=== PATIENT | female | born 1960 | race Caucasian/White ===

== ENCOUNTER → 2022-09-24 10:03 | Outpatient (CLI) | payer OTHER, SELFPAY ==
--- NOTE | 2022-09-24 | DI.MG.S_ITS ---
BILATERAL DIGITAL DIAGNOSTIC MAMMOGRAM 3D/2D: 09/24/2022 CLINICAL: Left breast lump. Baseline exam. No prior exams were available for comparison. There are scattered areas of fibroglandular density in both breasts (category b / 25%-50% glandular tissue). No correlate to the patient's diffuse medial left breast pain. There is an incidental possible oval equal density asymmetry with an obscured and indistinct margin in the left breast at 1 o'clock middle depth. This is not seen in additional views. No other significant masses, calcifications, or other findings are seen in either breast. IMPRESSION: INCOMPLETE: NEEDS ADDITIONAL IMAGING EVALUATION There is no abnormality seen in the left breast to correspond with the diffuse pain in the inner aspect. The incidental asymmetry in the left breast is indeterminate. An ultrasound is recommended. This was performed immediately following this exam. Based on the Tyrer Cuzick model (a risk assessment model) the patient's lifetime risk is 5.0% and her 10 year risk is 2.1%. According to the ACR, ACS, and NCCN guidelines, an annual breast MRI exam along with mammogram is recommended if the patient's lifetime risk is 20% or greater. This exam was interpreted at Station ID: [id number]. NOTE: For mammograms, a report in lay terms will be sent to the patient. Approximately 15% of breast malignancies will not be visualized mammographically. In the management of a palpable breast mass, a negative mammogram must not discourage biopsy of a clinically suspicious lesion. Electronically Signed By: Deneen joya/:09/24/2022 12:58:47 ACR BI-RADS Category 0: Incomplete 3340F
--- NOTE | 2022-09-24 | DI.US.S_ITS ---
LIMITED ULTRASOUND OF LEFT BREAST: 09/24/2022 CLINICAL: Diffuse left breast pain. Comparison is made to exam dated: 09/24/2022 mammogram - [facility]. Color flow ultrasound of the left breast 1 o'clock region was performed. Cross scale images of the real-time examination were reviewed. There is a 0.6 cm x 0.6 cm x 0.5 cm anechoic oval cyst with a finely septated internal wall in the left breast at 12 o'clock anterior depth 4 cm from the nipple. This correlates with mammography findings. Color flow imaging demonstrates that there is no vascularity present. Dense glandular tissue present in the medial left breast area of concern. IMPRESSION: BENIGN There is no sonographic finding to explain medial left breast pain. The 0.6 cm incidental oval cyst in the left breast is benign. Return to annual mammogram screening schedule is recommended. Findings and recommendations were conveyed to the patient at time of exam. This exam was interpreted at Station ID: [id number]. Electronically Signed By: Deneen joya/:09/24/2022 13:02:26 letter sent: Normal Exam Ultrasound BI-RADS: 2 Benign
== END ==
PROVIDERS: Referring Provider Student in an Organized Health Care Education/Training Program; Visit Provider Student in an Organized Health Care Education/Training Program
DX: N60.02 Solitary cyst of left breast (principal); R92.8 Other abnormal and inconclusive findings on diagnostic imaging of breast
CPT/HCPCS: 76642; 77066; G0279

== ENCOUNTER 2022-11-10 11:31 | Day surgery (SDC) | payer OTHER, SELFPAY ==
[2022-11-10] VITALS (13 sets, daily range): BP systolic 94–152; BP diastolic 66–91; PULSE 64–134; RESP 10–23; TEMP 36.1–36.7; O2SAT 95–100; BMI 46.2
[2022-11-10] MEDS: LACTATED RINGERS 1,000 ML 200 ML IV ×2 (11:57→15:25)
--- NOTE | 2022-11-10 13:08 | PM.HP.1 ---
History of Present Illness History of Present Illness Date Patient Seen: 11/10/22 Time Patient Seen: 13:08 Chief complaint: Colonoscopy Narrative: The patient presents for colorectal screening. They have never had any previous examination for such. No personal or family history of colon cancer. On further history denies any recent gastrointestinal symptoms. No nausea, vomiting, abdominal pain, loss of appetite, unexplained weight loss, change in bowel habits, or blood per rectum. Patient History Family & Social History Social History: household members spouse Tobacco & Substance use: Smoking Status Never smoker alcohol intake never Substance Use Type does not use Meds Home Medications and Allergies Home Medications Medication Instructions Recorded Confirmed Type ibuprofen 200 mg tablet 200 mg PO Q6H PRN pain 06/08/21 11/10/22 History Allergies Allergy/AdvReac Type Severity Reaction Status Date / Time tetracycline Allergy Unknown Verified 06/08/21 10:36 Exam Vital Signs (past 8 hours): - 11/10/22 11:45 Temperature 97.3 F L Pulse Rate 72 Respiratory Rate 16 Blood Pressure 144/82 H Pulse Oximetry 98 Oxygen Delivery Method Room Air Oxygen Delivery Method Room Air Narrative Exam Narrative: General adult woman alert oriented no acute distress Assessment & Plan Assessment & Plan narrative: The patient requires colorectal screening and colonoscopy is recommended. Technical details were discussed. Risks, benefits, alternatives explained. Risks including but not limited to myocardial infarction, aspiration, bleeding, pain, missed lesion, incomplete examination, need for further radiographic studies, colonic perforation, and need for major abdominal surgery were discussed. All questions were answered to their satisfaction, and they are in agreement with this plan. Time Spent With Patient Critical Care time: I spent a total of [] minutes of critical care time on this patient's care today; this time is exclusive of procedural time.
--- NOTE | 2022-11-10 13:09 | P.OP.COLON_ITS ---
Operative Date/Time/Diagnoses Date of procedure: 11/10/22 Time of procedure: 13:09 Pre-op diagnosis: Colorectal screening Post-op diagnosis: other (Colon polyp x1) Procedure & Clinicians Study performed: Colonoscopy Same procedure as scheduled: Yes Indications: Colorectal screening Surgeon: Kevin Pickett Procedure Notes Procedure in detail: The history and physical was performed/updated and the patient is ASA class is 2. The procedure was discussed in detail with the patient. Potential risks complications including infection, bleeding, missed diagnosis, perforation, need for surgery, and were explained. Their questions were answered and informed consent was obtained. Patient was brought to the procedure room and placed standard monitoring equipment. The patient's vital signs were monitored continuously throughout the entire procedure. Prior to starting time-out was performed. The patient was placed in the left lateral recumbent position. Procedural sedation was administered by anesthesia. Examination began with a thorough inspection of the perianal area there was no evidence of fissures, fistulae, external hemorrhoids or cutaneous malignancy. The colonoscopy scope was then placed into the anal canal and was advanced to the cecum, which was identified by the ileocecal valve, the appendiceal orifice and the confluence of the taenia. The scope was then slowly withdrawn examining colon thoroughly in all directions, irrigating it of any residual stool. Within the rectum there was a 5 mm polyp removed with biopsy forceps. Colon was tortuous and external pressure and a stiffening of the scope was neces marlena to complete it. The patient tolerated the procedure well. They will be discharged once criteria are met. The prep was of good/excellent quality. The withdrawl time was 7 minutes. Specimen(s): other (Rectal polyp) Impression: Colonic polyp x1 Post-procedure Recommendations: High fiber diet Plan for aftercare: Follow-up is dependent on pathology findings Disposition: same day surgery
--- NOTE | 2022-11-10 13:49 | SUR.PHASEI ---
EKG ordered and is being performed.
--- NOTE | 2022-11-10 13:55 | SUR.PHASEI ---
Dr. Pavon at bedside to evaluate patient. Metoprolol given by Dr. Perez.
--- NOTE | 2022-11-10 14:02 | SUR.PHASEI ---
Patient reported chest pressure butt denied chest pain.
--- NOTE | 2022-11-10 14:09 | P.EN_ITS ---
Event Note Date Patient Seen: 11/10/22 Time Patient Seen: 14:00 Event Note (Rapid Response, Code, or fall): 62 F with no known PMH, obese with BMI 46, here for a colonoscopy for colorectal cancer screening. Surgeon called when patient developed afib with RVR, rates as fast as 130 on shelter monitor. Was given 1L IV fluids, IV metorpolol with anesthesiologist. Improved generally to the 110s. She complains of chest pressure currently, EKG with mild ST depressions, lab evaluation ordered including cardiac biomarkers. Ordered 25 mg metoprolol tartrate oral. Suspect underlying afib based on history of palpitations in the past. Full consult or H&P to follow depending on disposition from PACU.
[2022-11-10 14:20] LABS: Add Manual Diff / Slide Review NO; Basophils Absolute Auto 100 /uL (0-100); Basophils Percent Auto 1.3 % (0-2); Eosinophils Absolute Auto 100 /uL (0-450); Eosinophils Percent Auto 2.5 % (2-4); Hematocrit 41.8 % (36-46); Hemoglobin 13.9 g/dL (12.0-16.0); Lymphocytes Absolute Auto 2500 /uL (1100-4500); Lymphocytes Percent Auto 44.3 % (25-40); Mean Corpuscular HGB Conc 33.4 % (30-36); Monocytes Absolute Auto 500 /uL (0-900); Monocytes Percent Auto 8.6 % (3-14); Neutrophils Absolute Auto 2400 /uL (1500-7000); Neutrophils Percent Auto 43.3 % (50-75); Platelet Count 238 X10^3/uL (150-400); Red Blood Cell Count 4.64 X10^6/uL (4.0-5.2); Red Cell Distribution Width 13.6 % (11.6-14.8); White Blood Cell Count 5.6 X10^3/uL (4.5-11.0)
--- NOTE | 2022-11-10 14:48 | SUR.PHASEI ---
Cardiac rhythm converted spontaneously to NSR.
[2022-11-10 14:52] LABS: Alanine Aminotransferase 25 IU/L (<35); Albumin 4.3 g/dL (3.5-5.0); Albumin Globulin Ratio 1.3 (1.0-2.8); Alkaline Phosphatase 117 U/L (38-126); Aspartate Aminotransferase 39 IU/L (14-36); BUN Creatinine Ratio 17.2 (6-22); Bilirubin Total 0.9 mg/dL (0.2-1.3); Blood Urea Nitrogen 10 mg/dL (7-17); Carbon Dioxide 27 mmol/L (22-32); Chloride 105 mmol/L (98-107); Estimated Glomerular Filt Rate > 60 mL/min (>60); Globulin 3.2 g/dL (1.7-4.1); Glucose 97 mg/dL (80-110); HEMOLYSIS < 15 (0-50); Magnesium 2.2 mg/dL (1.6-2.3); Potassium 3.6 mmol/L (3.4-5.1); Sodium 140 mmol/L (137-145); Total Protein 7.5 g/dL (6.3-8.2)
[2022-11-10 14:53] LABS: Carbon Dioxide 28 mmol/L (22-32); Chloride 106 mmol/L (98-107); HEMOLYSIS < 15 (0-50); Magnesium 2.2 mg/dL (1.6-2.3); Potassium 3.6 mmol/L (3.4-5.1); Sodium 140 mmol/L (137-145)
[2022-11-10 15:01] LABS: NT-proBNP (BNP-Adult 18+) 15 pg/mL (<125)
[2022-11-10 15:04] LABS: Troponin I < 0.012 ng/mL (0.01-0.034)
--- NOTE | 2022-11-10 15:22 | SUR.PHASEI ---
Dr. Pavon evaluated patient and patient may discharge per MD.
--- NOTE | 2022-11-10 15:23 | PM.CN ---
History of Present Illness Consult details Date Patient Seen: 11/10/22 Time Patient Seen: 14:00 Chief complaint: Colonoscopy Reason for consult: afib with RVR Requesting provider: Kevin Pickett Narrative: This is a 62 year old female with no known PMH here today for a screening colonoscopy. After her procedure, patient was found to be in afib with RVR. She had mild chest pressure during this episode, there was no radiation of the pressure and she denied diaphoresis or shortness of breath. She denied nausea or vomiting. She denies any recent dyspnea on exertion, lower extremity edema or orthopnea. She has occasional palpitations that usually resolve on their own. She has never been diagnosed with atrial fibrillation before. EKG showed afib with RVR, with ST depression in V2-V6. Patient was given a little over 1L fluid, 2 mg IV metoprolol and 25 mg of metoprolol tartate. She converted to sinus rhythm. Laboratory evaluation was unremarkable including negative troponin. Repeat EKG showed resolution of ST depressions and patient's symptoms had resolved. Meds Home Medications and Allergies Home Medications Medication Instructions Recorded Confirmed Type ibuprofen 200 mg tablet 200 mg PO Q6H PRN pain 06/08/21 11/10/22 History aspirin 81 mg tablet,delayed 81 mg PO DAILY 30 days #30 tabs 11/10/22 Rx release metoprolol succinate 25 mg 25 mg PO DAILY 30 days #30 tabs 11/10/22 Rx tablet,extended release 24 hr Allergies Allergy/AdvReac Type Severity Reaction Status Date / Time tetracycline Allergy Unknown Verified 06/08/21 10:36 Review of Systems Review of Systems Narrative: All other systems reviewed with the patient and are negative unless otherwise stated. Exam Vital Signs (past 8 hours): - 11/10/22 11:45 11/10/22 13:42 11/10/22 13:47 Temperature 97.3 F L 96.9 F L Pulse Rate 72 134 H 132 H Respiratory Rate 16 14 12 Blood Pressure 144/82 H 117/71 132/80 Pulse Oximetry 98 98 98 Oxygen Delivery Method Room Air Room Air Room Air 11/10/22 13:52 11/10/22 13:58 11/10/22 14:02 Temperature Pulse Rate 126 H 115 H 120 H Respiratory Rate 11 L 17 11 L Blood Pressure 152/91 H 130/81 123/83 Pulse Oximetry 98 98 97 Oxygen Delivery Method Room Air Room Air Room Air 11/10/22 14:19 11/10/22 14:27 11/10/22 14:38 Temperature Pulse Rate 100 H 111 H 119 H Respiratory Rate 12 10 L 13 Blood Pressure 142/78 H 116/89 108/79 Pulse Oximetry 98 98 97 Oxygen Delivery Method Room Air Room Air Room Air 11/10/22 14:47 11/10/22 14:57 11/10/22 15:12 Temperature 98.1 F Pulse Rate 68 65 84 Respiratory Rate 19 14 23 Blood Pressure 94/66 133/72 132/73 Pulse Oximetry 100 97 97 Oxygen Delivery Method Room Air Room Air Room Air Oxygen Delivery Method Room Air Narrative Exam Narrative: General:? Patient is well developed and well nourished, in no distress at this time. HEENT:? Normocephalic, atraumatic, extraocular muscles intact, oral pharynx is clear and mucous membranes are moist. Neck: supple and symmetric, trachea is midline, no cervical adenopathy. Negative for JVD Chest:? Normal AP diameter and contour without kyphoscoliosis, no tachypnea, equal chest rise bilaterally. Lungs:? CTA b/l no wheezing rhonchi or rales. Cardio:?RRR no m/r/g. Abdomen: S NT ND. No CVA tenderness. Musculoskeletal:? Muscle strength and tone are equal within normal limits, no deformity. Extremities: No edema or joint effusions. No cyanosis or clubbing. Skin:? Pale,? Warm to touch,dry and intact without rashes, ulcerations or petechiae.? Neuro:? Alert and orientated x3,? sensation to touch intact in all extremities, no gross deficits noted of cranial nerves. Psych:? Patient has a well-kept appearance, appropriate affect, mental status attitude thought context and judgment are appropriate for age. Objective ECG Impression: Initial: Afib with RVR, rate [address] depressions V2-6. Follow up: NSR, rate 60s, no ST abnormalitites. Labs 11/10/22 14:00 11/10/22 14:33 Labs: Laboratory Results - last 24 hr 11/10/22 11/10/22 11/10/22 14:00 14:33 14:33 WBC 5.6 RBC 4.64 Hgb 13.9 Hct 41.8 MCV 90.0 MCH 30.0 MCHC 33.4 RDW 13.6 Plt Count 238 Neut % (Auto) 43.3 L Lymph % (Auto) 44.3 H [place] % (Auto) 8.6 Eos % (Auto) 2.5 Baso % (Auto) 1.3 Neut # (Auto) 2400 Lymph # (Auto) 2500 [place] # (Auto) 500 Eos # (Auto) 100 Baso # (Auto) 100 Sodium 140 140 Potassium 3.6 3.6 Chloride 106 105 Carbon Dioxide 28 27 BUN 10 Creatinine 0.58 Estimated GFR > 60 BUN/Creatinine Ratio 17.2 Glucose 97 Calcium 9.0 Magnesium 2.2 2.2 Total Bilirubin 0.9 AST 39 H ALT 25 Alkaline Phosphatase 117 Troponin I < 0.012 NT-Pro-B Natriuret Pep Total Protein 7.5 Albumin 4.3 Globulin 3.2 Albumin/Globulin Ratio 1.3 11/10/22 14:33 WBC RBC Hgb Hct MCV MCH MCHC RDW Plt Count Neut % (Auto) Lymph % (Auto) [place] % (Auto) Eos % (Auto) Baso % (Auto) Neut # (Auto) Lymph # (Auto) [place] # (Auto) Eos # (Auto) Baso # (Auto) Sodium Potassium Chloride Carbon Dioxide BUN Creatinine Estimated GFR BUN/Creatinine Ratio Glucose Calcium Magnesium Total Bilirubin AST ALT Alkaline Phosphatase Troponin I NT-Pro-B Natriuret Pep 15 Total Protein Albumin Globulin Albumin/Globulin Ratio [facility] Medical History HLD (hyperlipidemia) Prediabetes Surgical History History of cholecystectomy Family History Father CAD (coronary artery disease) Mother Diabetes mellitus Other No pertinent past medical history Social History household members: spouse Tobacco & Substance Use Smoking Status: Former smoker alcohol intake: never Assessment & Plan Assessment & Plan narrative: 1. Paroxysmal Atrial fibrillation with RVR, resolved - new diagnosis for patient, likely in the setting of volume depletion from colonoscopy prep, possible MJ as well. Patient converted to NSR with IV fluids and 25 mg oral metoprolol tartrate. Chest symptoms resolved. Labs are unremarkable including negative troponin. - recommend outpatient nuclear stress testing given EKG findings with RVR that resolved with conversion to NSR, 81 mg daily aspirin, and metoprolol succinate 25 mg daily given prior history of palpitations. - CHADS-VASC of 1 based on available data. - if stress testing is unremarkable would also evaluate with outpatient sleep study. - recommend PCP follow up ideally within the week. Discussed care with patient, PACU nurse, and attending surgeon. Reviewed patient's outpatient PCP records that are scanned into the chart for additional history. Patient okay for discharge home at this time with close outpatient follow up for above recommendations. I have utilized all available immediate resources to obtain, update, or review the patient's current medications. Time Spent With Patient Critical Care time: I spent a total of [] minutes of critical care time on this patient's care today; this time is exclusive of procedural time.
== END 2022-11-10 15:40 | disposition home or self-care (01) ==
PROVIDERS: Anesthesiology; Internal Medicine; Referring Provider Surgery; Visit Provider Surgery
PROC: 0DJD8ZZ Inspection of Lower Intestinal Tract, Via Natural or Artificial Opening Endoscopic (ICD-10-PCS; CPT 45378; principal; 2022-11-10 12:30)
DX: Z12.11 Encounter for screening for malignant neoplasm of colon (principal); I48.91 Unspecified atrial fibrillation; K62.1 Rectal polyp
CPT/HCPCS: 45380; 80051; 80053; 83735; 83880; 84484; 85025; 93005

== ENCOUNTER → 2023-05-14 13:34 | Outpatient (CLI) | payer OTHER, SELFPAY ==
--- NOTE | 2023-05-14 | DI.ECHO.S_ITS ---
[facility]---------[facility] +---------+ : : [address] : : : : [id number] : : : : Phone: [phone]+ Echocardiogram Report + + :Name: CAITIE THOMAS Study Date: 05/14/2023 Height: 62 in : [facility] ReadingLocation: Weight: 260 lb : : Gender: Female BSA: 2.1 m2 : :: 1960 Age: 62 yrs BP: 164/96 mmHg: :Reason For Study: Paroxysmal Atrial Fibrillation : :Ordering Physician: USAMA, : :PAUL Performed By: María Elena Killian : :Referring: PAUL MOORE : + + Interpretation Summary 1) Normal left ventricular thickness, size, and systolic function (EF 60-65%). 2) Normal right ventricular size and function. 3) No significant valvular abnormalities. 4) No prior Echo available for comparison. Procedure: A two-dimensional transthoracic echocardiogram with color flow and Doppler was performed. The study quality was technically difficult. There is no prior echocardiogram noted for this patient. The patient was in normal sinus rhythm during the exam. Left Ventricle: The left ventricle is normal in size and wall thickness. The ejection fraction is estimated to be 60-65%. There are no obvious focal wall motion abnormalities noted but poor endocardial definition reduces the sensitivity for the detection of such. Diastolic parameters suggest a relaxation abnormality of the left ventricle, consistent with probable normal filling pressures. Right Ventricle: The right ventricle is normal in size and function. Atria: The left atrial size is normal. Right atrial size is normal. There is no Doppler evidence for an interatrial shunt. Mitral Valve: The mitral valve is normal. There is no mitral valve stenosis. There is trace mitral regurgitation. Aortic Valve: The aortic valve is trileaflet. There is mild aortic valve sclerosis. There is no aortic valve stenosis. No aortic regurgitation is present. Tricuspid Valve: The tricuspid valve is normal. There is no tricuspid stenosis. There is trace tricuspid regurgitation. Pulmonary artery pressures cannot be estimated because of the lack of a measurable TR jet velocity. Pulmonic Valve: The pulmonic valve is not well visualized. There is no pulmonic valvular stenosis. There is no pulmonic valvular regurgitation. Great Vessels: The aortic root is normal size. The ascending aorta is at the upper limits of normal in size. The pulmonary artery is normal size. The inferior vena cava was not well visualized. Pericardium/ Pleura There is a trivial pericardial effusion noted. MMode/2D Measurements & Calculations LVIDd: 5.1 cm LVOT diam: 2.0 cm LVIDs: 4.1 cm Ao root diam: 2.6 cm FS: 19.6 % asc Aorta Diam: 3.5 cm IVSd: 1.0 cm LVPWd: 0.90 cm LV menjivar. diameter/BSA (cm/m^2): 2.4 LV sys. diameter/BSA (cm/m^2): 1.9 LA A2 area: 12.4 cm2 RA long axis: 4.3 cm LA A4 area: 12.4 cm2 RA area: 10.3 cm2 LA length (vol): 4.6 cm RA vol: 21.0 ml LA vol: 28.3 ml RA : 9.8 ml/m2 LA vol index: 13.2 ml/m2 RVD1 (basal): 3.3 cm LVLs ap4: 5.3 cm LVLd ap2: 7.3 cm LVLs ap2: 5.9 cm Doppler Measurements & Calculations Ao V2 max: 156.0 cm/sec LVOT Max Shashank: 99.8 cm/sec Ao V2 mean: 105.3 cm/sec LV V1 max P.0 mmHg Ao max P.0 mmHg LV V1 VTI: 25.4 cm Ao mean P.3 mmHg LIZZETTE(I,D): 2.2 cm2 Ao V2 VTI: 36.4 cm ILZZETTE(V,D): 2.0 cm2 sev ratio: 0.70 LIZZETTE indexed to BSA (cm^2/m^2): 1.0 MV E max shashank: 91.5 cm/sec TR max shashank: 181.3 cm/sec MV A max shashank: 84.0 cm/sec TR max P.2 mmHg MV E/A: 1.1 PA V2 max: 104.0 cm/sec Med Peak E' Shashank: 8.3 cm/sec PA V2 mean: 74.4 cm/sec E/E' med: 11.0 PA mean P.0 mmHg Lat Peak E' Shashank: 9.6 cm/sec PA pr(Accel): 39.8 mmHg E/E' lat: 9.5 E/e' average: 10.2 MV dec time: 0.21 sec SV(LVOT): 79.8 ml AV VR_phl: 0.64 LIZZETTE(VTI)/BSA_phl: 1.0 Reading Physician:09:30 AM
--- NOTE | 2023-05-14 | DI.NM.S_ITS ---
PROCEDURE: NM EXERCISE TREADMILL NON NUC COMPARISON: No INDICATIONS: Paroxysmal atrial fibrillation FINDINGS: Rest ECG sinus rhythm. Preston protocol 4:00, maximum heart rate 142 bpm (90% peak predicted), maximum blood pressure 215/85, 7.0 METS, KATELYN +30%. Exercise ECG sinus tachycardia, no ST segment changes or arrhythmia; occasional PVCs noted. The patient did not complain of exercise-induced chest discomfort. IMPRESSION: Low risk study. No evidence of exercise-induced ischemia or arrhythmia. Hypertensive response. Reduced exercise capacity. Dictated by: Didi Romo D.O. on 05/14/2023 at 16:24 Approved by: Didi Romo D.O. on 05/14/2023 at 16:26
== END ==
PROVIDERS: PCP Registered Nurse; Referring Provider Internal Medicine Cardiovascular Disease; Visit Provider Internal Medicine Cardiovascular Disease
DX: I48.0 Paroxysmal atrial fibrillation (principal); R06.09 Other forms of dyspnea; I35.8 Other nonrheumatic aortic valve disorders
CPT/HCPCS: 93017; 93306

== ENCOUNTER → 2023-06-05 11:13 | Outpatient (CLI) | payer OTHER, SELFPAY ==
--- NOTE | 2023-06-05 11:17 | DI.RAD.S_ITS ---
PROCEDURE: XR CHEST 2V INDICATIONS: Foreign body sensation, throat TECHNIQUE: 2 views of the chest were acquired. COMPARISON: None. FINDINGS: Surgical changes and devices: None. Lungs and pleura: Lungs are clear. No pleural effusions or pneumothorax. Mediastinum: Mediastinal contours are normal. Heart size is normal. Bones and chest wall: No suspicious bony abnormalities. Soft tissues appear unremarkable. IMPRESSION: No acute cardiopulmonary abnormality. No radiopaque foreign body. Dictated by: Curtis Loyola M.D. on 06/05/2023 at 13:01 Approved by: Curtis Loyola M.D. on 06/05/2023 at 13:01
== END ==
PROVIDERS: PCP Registered Nurse; Referring Provider Registered Nurse; Visit Provider Registered Nurse
DX: R09.A2 Foreign body sensation, throat (principal); R05.2 Subacute cough; E13.10 Other specified diabetes mellitus with ketoacidosis without coma
CPT/HCPCS: 71046

== ENCOUNTER → 2023-06-23 13:51 | Outpatient (CLI) | payer OTHER, SELFPAY ==
--- NOTE | 2023-06-23 13:51 | DI.CT.S_ITS ---
PROCEDURE: CT SOFT TISSUE NECK W CON INDICATIONS: Globus sensation TECHNIQUE: After the administration of intravenous contrast, 3.0 mm axial sections acquired from the sella to the aortic arch. Additional oblique axial 3.0 mm sections acquired through the pharynx. 3 mm thick coronal and sagittal reformats were generated. For radiation dose reduction, the following was used: automated exposure control. COMPARISON: [facility], CR, XR CHEST 2V, 06/05/2023, 11:24. FINDINGS: Image quality: Excellent. Lymph nodes: No enlarged lymph nodes seen throughout the neck. Vessels: Visualized vasculature appears patent. Neck spaces: In this patient with this given history, scrutiny is given to foreign bodies. None can be seen. The oropharynx, nasopharynx, and pharynx demonstrate no discrete mucosal lesions. However, mucosal fullness can be thing within the region of the epiglottis. The vocal cords, false vocal cords, pyriform sinuses, epiglottis, vallecula, and tongue base all appear normal. Extramucosal spaces appear unremarkable. Glands: The parotid and submandibular glands appear normal. Thyroid gland demonstrates no significant abnormality. Miscellaneous: Visualized brain and orbits appear normal. Lung apices appear clear. Superficial soft tissues appear normal. Bones: No suspicious bony lesions. Visualized sinuses and mastoids appear unremarkable. IMPRESSION: No foreign bodies are masses are seen. Generalized mucosal thickening can be seen within the region of the epiglottis. If clinically appropriate, please consider a barium swallowing examination, with additional focal images of the cervical esophagus. Dictated by: Eidn Webber M.D. on 06/23/2023 at 16:16 Approved by: Edin Webber M.D. on 06/23/2023 at 16:17
[2023-06-23 14:30] LABS: Estimated Glomerular Filt Rate > 60 mL/min (>60)
== END ==
PROVIDERS: PCP Registered Nurse; Referring Provider Surgery; Visit Provider Surgery
DX: R09.A2 Foreign body sensation, throat (principal)
CPT/HCPCS: 36415; 70491; 82565; Q9967

== ENCOUNTER 2023-08-03 08:56 | Day surgery (SDC) | payer OTHER, SELFPAY ==
--- NOTE | 2023-08-03 | PATH_ITS ---
[facility] Accession Number: [id number] No. of containers..01 Tissue . 01 Material submitted: . esophagus - ESOPHAGEAL BIOPSIES . 01 Diagnosis: Esophagus, Biopsy: Squamous epithelium with no diagnostic abnormality. Intraepithelial eosinophils are not increased. Negative for dysplasia and malignancy. [facility] 08/12/2023 1338 Local . 01 Electronically signed: . Yoli Martines MD, Pathologist NPI- [id number] . 01 Gross description: . ESOPHAGEAL BIOPSIES: Received in formalin is multiple fragment(s) of gaitan, soft tissue measuring 0.5 x 0.3 x 0.1 cm in aggregate submitted entirely in 1 cassette(s) /AAY 08/04/2023 0457 Local . 01 Pathologist provided ICD-10: R09.A2 . 01 CPT . 206215 Specimen Comment: A courtesy copy of this report has been sent to [phone] Performed at: 01 [facility] [address] [place] [address] [facility], [place], [place] [id number] MD Bon Ervin MD Phone: [phone]
[2023-08-03 09:18] VITALS: BMI 48.4
[2023-08-03] MEDS: LACTATED RINGERS 1,000 ML 150 ML IV (09:34)
[2023-08-03 09:35] VITALS: BP 163/68; PULSE 67; RESP 21; TEMP 36.2; O2SAT 97
--- NOTE | 2023-08-03 09:44 | PM.HP.1 ---
History of Present Illness History of Present Illness Date Patient Seen: 08/03/23 Time Patient Seen: 09:44 Chief complaint: EGD Narrative: 62-year-old woman with globus sensation here for diagnostic esophagoduodenoscopy. Please refer to the H and P from May 2023 for further detail. No interval changes in health. [facility] Medical History Obesity Prediabetes HLD (hyperlipidemia) Surgical History History of cholecystectomy Family History Father CAD (coronary artery disease) Mother Diabetes mellitus Other No pertinent past medical history Social History household members: family Smoking Status: Former smoker alcohol intake: never Meds Home Medications and Allergies Home Medications Medication Instructions Recorded Confirmed Type aspirin 81 mg tablet 81 mg PO DAILY 06/17/23 08/03/23 History propranolol 60 mg tablet 60 mg PO ONCE 06/17/23 08/03/23 History vitamin B complex 1 tab PO DAILY 08/03/23 08/03/23 History Allergies Allergy/AdvReac Type Severity Reaction Status Date / Time tetracycline Allergy Severe Swelling Verified 08/03/23 09:15 of Lip/Tongue/Throat Exam Vital Signs (past 8 hours): - 08/03/23 09:35 Temperature 97.1 F L Pulse Rate 67 Respiratory Rate 21 Blood Pressure 163/68 H Pulse Oximetry 97 Oxygen Delivery Method Room Air Oxygen Delivery Method Room Air Narrative Exam Narrative: General adult woman alert oriented no acute distress Chest nonlabored respiration Extremities warm well perfused Assessment & Plan Assessment and plan (1) Globus sensation: Status: Acute Assessment & Plan narrative: Diagnostic esophagoduodenoscopy is recommended. Technical details were discussed. Risks, benefits, alternatives explained. Risks including but not limited to myocardial infarction, aspiration, bleeding, pain, missed lesion, incomplete examination, need for further radiographic studies, intestinal injury, and need for major abdominal surgery were discussed. All questions were answered to their satisfaction, and they are in agreement with this plan.
--- NOTE | 2023-08-03 09:59 | PM.OP.EGD ---
Operative Date/Time/Diagnoses Date of procedure: 08/03/23 Time of procedure: 09:59 Pre-op diagnosis: Globus sensation Post-op diagnosis: same Procedure & Clinicians Study performed: Esophagoduodenoscopy Same procedure as scheduled: Yes Indications: 62-year-old woman with globus sensation here for diagnostic EGD Surgeon: Kevin Pickett Procedure Notes Procedure in detail: The history and physical was performed/updated and the patient is ASA class is 2. The procedure was discussed in detail with the patient. Potential risks complications including infection, bleeding, missed diagnosis, perforation, need for surgery, and were explained. Their questions were answered and informed consent was obtained. Patient placed in left lateral decubitus position. Time out was performed. Procedural sedation was administered by Anesthesia. A bite block was placed. the scope was inserted into the mouth and advanced through the esophagus and into the stomach. The pylorus was intubated and the duodenum was examined to the 2nd portion. The scope was then withdrawn into the stomach and was retroflexed. The stomach was decompressed and scope was withdrawn slowly through the esophagus. FINDINGS -no esophageal or gastric masses. -no hiatal hernia -GE junction 40 cm from incisors -unremarkable upper endoscopy. Biopsies esophagus taken with forceps -perhaps slight thickening of the epiglottis The patient tolerated the procedure well and will be discharged when they meet criteria. Specimen(s): other (Esophagus) Impression: Largely unremarkable EGD Post-procedure Plan for aftercare: Referral to ENT for further evaluation of epiglottis Disposition: same day surgery
[2023-08-03 10:05] VITALS: BP 123/61; PULSE 63; RESP 22; TEMP 36.1; O2SAT 98
[2023-08-03 10:10] VITALS: BP 101/70; PULSE 64; RESP 20; O2SAT 98
[2023-08-03 10:15] VITALS: BP 131/66; PULSE 60; RESP 19; TEMP 36.6; O2SAT 98
== END 2023-08-03 10:25 | disposition home or self-care (01) ==
PROVIDERS: PCP Registered Nurse; Referring Provider Surgery; Visit Provider Surgery
PROC: 0DJ08ZZ Inspection of Upper Intestinal Tract, Via Natural or Artificial Opening Endoscopic (ICD-10-PCS; CPT 43235; principal; 2023-08-03 09:45)
DX: R09.A2 Foreign body sensation, throat (principal)
CPT/HCPCS: 43239; J2704

== ENCOUNTER → 2023-12-20 09:02 | Outpatient (CLI) | payer OTHER, SELFPAY ==
--- NOTE | 2023-12-20 09:06 | DI.RAD.S_ITS ---
PROCEDURE: FL BARIUM SWALLOW W SPEECH INDICATIONS: Dysphagia, unspecified COMPARISON: None. TECHNIQUE: Examination was conducted in conjunction with speech pathology per standard protocol. In the lateral projection, filming was performed of the patient swallowing. AP projection filming may also be performed with patient swallowing. COMPARISON: FINDINGS: Function: The oral preparatory phase appears normal, with proper containment. The subsequent oral propulsive phase, pharyngeal phase, and esophageal phase of swallowing also appear normal with all proffered substances. There was intermittent mild laryngotracheal penetration. No aspiration. No pathologic vallecular pooling. Limited esophagram demonstrated marked esophageal reflux without provocative maneuvers to the level of the thoracic inlet. Morphology: No cricopharyngeal bar is identified. No cervical esophageal webs. No Zenker's diverticulum. No strictures. IMPRESSION: 1. Minimal penetration. No aspiration. Please see a detailed description of the swallow evaluation by the speech pathologist. 2. Marked gastroesophageal reflux to the thoracic inlet in the standing position without provocative maneuvers. Dictated by: Milly España M.D. on 12/20/2023 at 10:30 Approved by: Milly España M.D. on 12/20/2023 at 10:31
--- NOTE | 2023-12-20 13:29 | ST.SWALLOW ---
Visit Care Team Role Provider Type Arminda ARABELLA Cordoba Primary Care Provider Non-Staff Specialty: Family Practice Address: [address], [place], [address] Email: Pal Rosenberg MD Attending Provider Physician Referring Provider Specialty: Ear, Nose, Throat Address: [address] [place] [address], [id number] Email: [email or web address] Modified Barium Swallow Study [employer] Modified Barium Swallow Study Start: 12/20/23 09:48 Freq: Status: Active Protocol: Document 12/20/23 09:48 LNK (Rec: 12/20/23 09:58 LNK [id number]) Modified Barium Swallow Study Total Time Visit Start Time 06:15 Visit Stop Time 01:45 Total Visit Minutes [address] Rosenberg, ENT Setting Setting Outpatient Care Patient Information Identification Type Name,Date of Patient History Pt was seen for a Modified Barium Swallow Study at the referral of Dr Rosenberg. Pt reported difficulty with swallowing liquids only; she denied difficulty swallowing pills and solid foods. She described a globus sensation in her throat below her larynx . She has regurgitated liquid into her mouth and/or nose at times. Pt recently had EGD completed with the results noting mildly enlarged esophagus. Subjective Observations Pt was seated in the fluoroscopy chair with directions and procedures described for her. She indicated she understood and agreed to proceed. Patient Positioning Position View Lat-A/P Imaging Lateral View Textures Administered Trials Presented Thin Liquid via Spoon (IDDSI 0 ),Thin Liquid via Cup (IDDSI 0 ),Extremely Thick Liquid via Spoon (IDDSI 4),Regular (IDDSI 7) Barium Tablet No The IDDSI Framework Protocol: IDDSI.1 Oral Impairment Source: The Modified Barium Swallow Impairment Profile (MBSImP??) Lip Closure No labial escape Tongue Control During Bolus Hold Cohesive bolus between tongue to palatal seal Bolus Preparation/Mastication Timely & efficient chewing & mashing Bolus Transport/Lingual Motion Brisk tongue motion Location Tongue Initiation of Pharyngeal Swallow Bolus head at posterior laryngeal surface of epiglottis Additional Oral Impairment Observations OME and DKS were observed to be WNL. Mastication observed with rotary chew pattern. Good bolus formation, control and AP transition. Pharyngeal Impairment Source: The Modified Barium Swallow Impairment Profile (MBSImP??) Soft Palate Elevation No bolus between soft palate & pharyngeal wall Laryngeal Elevation Part.sup.move.thyroid cart/ part.approx.arytenoids to epiglot.petiole Anterior Hyoid Excursion Partial anterior movement Epiglottic Movement Partial inversion Laryngeal Vestibular Closure Incomplete; narrow column air/ contrast in laryngeal vestibule Pharyngeal Stripping Wave Present - diminished Pharyngoesophageal Segment Opening Complete distention & complete duration; no obstruction of flow Tongue Base Retraction Narrow column of contrast/air betwn tongue base & post. pharyngeal wall Pharyngeal Residue Trace residue within/on pharyngeal structures Location Valleculae Additional Pharyngeal Impairment Mild reduction in tongue base Observations retraction strength Reduced hyolaryngeal elevation Inconsistent epiglottinc inversion with small amounts Contrast penetration into the laryngeal vestibule (PAS2) No tracheal aspiration Diffused contrast residue in pharynx - primarily in valeculla A/P View Textures Administered Trials Presented Thin Liquid via Cup (IDDSI 0) The IDDSI Framework Protocol: IDDSI.1 A/P View Observations Esophageal Clearance Upright Position Esophageal retention w/ retrograde flow thru pharyngoesoph segment Vocal Fold Function Good Esophageal Function Slowed Clearing,Poor Motility, Reverse Peristalsis,Narrowing Additional A-P Observations Retrograde flow of esophageal contents observed near UES and near thoracic inlet. See separate radiology report Recommend referral to for dysphagia therapy Clinical Impressions Dysphagia Type Pharyngeal,Esophageal Rehabilitation Potential Good Patient Appropriate for Therapy Yes: Base of tongue exercises recommended Recommendations Diet Comments No diet changes recommended Treatment Plan Therapy Recommendations Outpatient Speech Therapy,Base of Tongue Exercises Recommended Referrals GI Consult
== END ==
LOC: RAD 09:05
PROVIDERS: PCP Registered Nurse; Referring Provider Otolaryngology; Visit Provider Otolaryngology
DX: R13.10 Dysphagia, unspecified (principal); K21.9 Gastro-esophageal reflux disease without esophagitis; R09.A2 Foreign body sensation, throat; R49.0 Dysphonia
CPT/HCPCS: 74230; 92611